=== PATIENT | female | born 1935 | race African-American/Black ===

== ENCOUNTER 2017-05-06 17:31 | Emergency (ER) | payer OTHER ==
[~2017-05-06] VITALS: Ht 162.6 cm; Wt 77.0 kg
[~2017-05-06 17:31] MED LIST: ATOR40TA16 PO; METO50TA PO; PAXI40TA PO; ROPI.25 PO
[2017-05-06 17:35] VITALS: BP 180/77; PULSE 75; RESP 18; TEMP 99.3; O2SAT 96
== END 2017-05-06 20:31 | disposition left against medical advice (07) ==
LOC: NEPD 17:31
DX: M54.9 Dorsalgia, unspecified (principal)
CPT/HCPCS: 99281

== ENCOUNTER 2017-05-07 12:49 | Emergency (ER) | payer OTHER ==
[~2017-05-07] VITALS: Ht 162.6 cm; Wt 80.0 kg
[2017-05-07 12:50] VITALS: BP 143/76; PULSE 76; RESP 18; TEMP 98.7; O2SAT 99
[2017-05-07 16:21] VITALS: BP 162/79; PULSE 62; RESP 18; O2SAT 100
--- NOTE | 2017-05-07 17:02 | PD ---
HPI Chief Complaint: Pain: Acute or Chronic Time Seen by Provider: 16:10 Travel History International Travel<30 days: No Contact w/Intl Traveler<30days: No Traveled to known affect area: No History of Present Illness HPI An 81 year-old woman presents to the emergency department complaining of bilateral hip pain, initially little bit worse on the left than the low back, no worsening the right. She fell back in December and January of this year. No recent falls. She also endorses some swelling in her legs. She has appointment with her primary doctor and was posted a CAT scan today to look for liver problems but she did not go. She's been using her walker to get around for the past couple weeks. History Past Medical History Narrative Medical Hyperlipidemia Diabetes Menopausal: Yes Social History Alcohol Use: No Tobacco Use: No Allergies-Medications (Allergen,Severity, Reaction): Coded Allergies: penicillin G (Unverified Allergy, Severe, A CHILD, 05/06/17) shellfish derived (Unverified Allergy, Severe, SWELL, 05/06/17) Reported Meds & Prescriptions Reported Meds & Active Scripts Active Reported Atorvastatin (Atorvastatin Calcium) 40 Mg Tab 40 Mg PO HS Requip (Ropinirole HCl) 0.25 Mg Tab 0.25 Mg PO HS Metoprolol Tartrate 50 Mg Tab 50 Mg PO BID Paxil (Paroxetine HCl) 40 Mg Tab 40 Mg PO DAILY Review of Systems Except as stated in HPI: all other systems reviewed are Neg Physical Exam Narrative GENERAL: Well-appearing 81 year-old woman, no acute distress. SKIN: Focused skin assessment warm/dry. NECK: Trachea midline. No JVD. CARDIOVASCULAR: Regular rate and rhythm. No murmur appreciated. RESPIRATORY: No accessory muscle use. Clear to auscultation. Breath sounds equal bilaterally. GASTROINTESTINAL: Abdomen soft, non-tender, nondistended. Hepatic and splenic margins not palpable. MUSCULOSKELETAL: No obvious deformities. No edema. NEUROLOGICAL: Awake and alert. No obvious cranial nerve deficits. Motor grossly within normal limits. Strength is full and equal in the lower extremities. No decreased or absent sensation in the lower extremities. Normal speech. PSYCHIATRIC: Appropriate mood and affect; insight and judgment normal. Data Data Last Documented VS Vital Signs Date Time Temp Pulse Resp B/P (MAP) Pulse Ox O2 Delivery O2 Flow Rate FiO2 05/07/17 16:21 62 18 162/79 (106) 100 Room Air 05/07/17 12:50 98.7 Orders Orders Pelvis, Ap Only (Routine) (05/07/17 ) [facility] Medical Decision Making Medical Screen Exam Complete: Yes Emergency Medical Condition: Yes Differential Diagnosis Back pain, hip pain fracture, pubic ramus fracture, other Narrative Course Medical decision making 81 year-old woman who presents to the emergency Department with back and hip pain. Lower extremity neurologic exam is unremarkable. Recommend x-rays given her age rule out any obvious abnormalities, outpatient follow-up. Diagnosis Primary Impression: Hip pain, bilateral Additional Instructions: Take acetaminophen as needed for severe pain. Follow-up with your primary doctor in 1-2 days. Return to the emergency department for any new or worsening symptoms. Med/Other Pt SpecificInfo: Prescription(s) given Disposition: 01 DISCHARGE HOME Condition: Stable Kofi Cabrera MD May 07, 2017 17:02
--- NOTE | 2017-05-07 17:48 | RADRPT ---
EXAM DATE/TIME: 05/07/2017 16:37 [facility] COMPARISON: No previous studies available for comparison. INDICATIONS : Lower back and bilateral hip pain for 5 months since falling. MEDICAL HISTORY : None. SURGICAL HISTORY : Lumbar fusion. ENCOUNTER: Initial ACUITY: 4 - 6 months PAIN SCORE: 10/10 LOCATION: Bilateral hips. FINDINGS: A single portable frontal view of the pelvis shows orthopedic hardware involving the lower lumbar spi ne. 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 No fracture or dislocation. Osteope nesha noted. Soft tissues unremarkable. CONCLUSION: No acute abnormality. Andre Coelho Jr., MD on May 07, 2017 at 17:46 Board Certified Radiologist. This report was verified electronically.
--- NOTE | 2017-05-07 17:50 | RADRPT ---
EXAM DATE/TIME: 05/07/2017 17:19 [facility] COMPARISON: No previous studies available for comparison. INDICATIONS : Lower back pain for five months post fall MEDICAL HISTORY : None. SURGICAL HISTORY : Fusion, lumbar. ENCOUNTER: Initial ACUITY: 4 - 6 months PAIN SCORE: 8/10 LOCATION: Lumbar spine FINDINGS: A complete lumbar spine series shows bilateral transpedicular posterior fixation involving L4-L5 and L5-S1. A scoliotic curvature is observed with concavity towards the patient's right centered at L3-L4 . Disc space narrowing with anterior osteophyte production is noted at L2-L3 and L3-L4. Vacuum disc p henomena also noted. No acute fracture or dislocation. No lucency surrounding the anchoring screws. CONCLUSION: Postsurgical changes with degenerative disc disease and scoliotic curvature. No acute abnormality. Andre Coelho Jr., MD on May 07, 2017 at 17:47 Board Certified Radiologist. This report was verified electronically.
--- NOTE | 2017-05-07 18:21 | PD ---
Data Data Last Documented VS Vital Signs Date Time Temp Pulse Resp B/P (MAP) Pulse Ox O2 Delivery O2 Flow Rate FiO2 05/07/17 16:21 62 18 162/79 (106) 100 Room Air 05/07/17 12:50 98.7 Orders Orders Pelvis, Ap Only (Routine) (05/07/17 ) Spine, Lumbar Comp W/Obliq (05/07/17 ) MDM Supervised Visit with DEEP: No Narrative Course The patient was initially evaluated by the previous provider and signed out to me at the beginning of my shift pending lumbar x-ray, pelvis x-ray, and disposition. See his note for further details. Briefly this is an 81-year-old female who is here for evaluation of lower back pain. The patient has chronic lower back pain and has had surgery on her lumbar spine. She does not have any red flags for low back pain. She did have a fall a couple of weeks ago and has had some increased pain since then. On physical exam she is awake and alert and is very pleasant. There are no obvious signs of trauma. She has normal range of motion in all joints and extremity. No sacral anesthesia. Normal muscle strength in bilateral upper and lower extremities. No midline vertebral step-off or tenderness. Initial vital signs show heart rate 76, blood pressure 143/76, pulse ox 99% on room air, oral temp of 98.7F. Pelvis x-ray shows no acute abnormality. Lumbar spine x-ray shows postsurgical changes with degenerative disc disease and scoliotic curvature, no acute abnormality. Patient was made aware of all findings. She is resting comfortably. She was advised to take Tylenol for her pain. She is stable for discharge home with outpatient follow-up with her primary care physician this week. She was informed on when to return to the emergency department. She verbalizes understanding and agreement with plan. Diagnosis Primary Impression: Hip pain, bilateral Additional Impression: Lower back pain Qualified Codes: M54.5 - Low back pain; G89.29 - Other chronic pain Referrals: Primary Care Physician 3 days Additional Instruction: Take acetaminophen as needed for severe pain. Follow-up with your primary doctor in 1-2 days. Return to the emergency department for any new or worsening symptoms. Disposition: 01 DISCHARGE HOME Condition: Stable Bruno Stover MD May 07, 2017 18:21
== END 2017-05-07 18:53 | disposition home or self-care (01) ==
LOC: NEPD 12:49
DX: M25.552 Pain in left hip (principal); M25.551 Pain in right hip; M54.5 Low back pain; G89.29 Other chronic pain; E11.9 Type 2 diabetes mellitus without complications; E78.5 Hyperlipidemia, unspecified
CPT/HCPCS: 72110; 72170; 99284